=== PATIENT | female | born 1960 | race Caucasian/White ===

== ENCOUNTER 2023-09-13 07:30 | Day surgery (SDC) | payer OTHER ==
[~2023-09-13] VITALS: Ht 154.9 cm; Wt 52.0 kg
[~2023-09-13 07:30] MED LIST: ACYCLOVIR200 MG PO; ALLEGRA180 MG PO; ASPIRIN EC81 MG PO; FLONASE2 SPRAY NS; IBLOOD GLUCOSE TEST STRIP 1 EA TEST VI PRN; LACTATED RINGER'S 1,000 ML IV SCH; LEVOTHYROXINE25 MCG PO; LIDOCAINE HCL 1% 5 ML SDV INJ ONE; MIDAZOLAM HCL 5 MG/5 ML VIAL IV PRN; MULTIVITAMINS1 EAC7 PO; VISION PLUS LU1 EACH PO; ZOCOR10 MG PO; fentaNYL citrate 100 MCG/2 ML VIAL IV PRN
[2023-09-13] MEDS ORDERED: CETIRIZINE HCL10 MG PO (07:48)
[2023-09-13 07:49] VITALS: BP 150/91
[2023-09-13] MEDS ORDERED: MIDAZOLAM HCL 5 MG/5 ML VIAL ONE (08:25)
[2023-09-13] MEDS ORDERED: fentaNYL citrate 100 MCG/2 ML VIAL ONE (08:25)
--- NOTE | 2023-09-13 09:29 | NUR ---
09/13/23 0929 Sindy Cabral 0918- PT PRESENTS TO PACU, LEFT LATERAL SEMI MONTIEL POSITION. LR INFUSING TO RH IV, O2 AT 3L PER NC. BREATHING EVEN AND NON LABORED. PT REACTIVE TO STIMULUS, DENIES PAIN AND NAUSEA. NO SIGNS OF DISTRESS. ABD SOFT, ENCOURAGED TO PASS GAS. PT BACK TO RESTING, ALL MONITORS IN PLACE. 0926- PT MOVED TO ROOM AIR AT THIS TIME. CONTINUES TO REST, NO SIGNS OF DISTRESS. 0928- DR PAYNE AT BEDSIDE TO REVIEW FINDINGS.
[2023-09-13 09:51] VITALS: BP 125/77
--- NOTE | 2023-09-13 11:05 | OR ---
[facility] [address] [place], [place] [address] Signed DATE OF OPERATION: 09/13/2023 SURGEON: Andi Payne MD PREOPERATIVE DIAGNOSIS: History of polyps 2012 in [place]. POSTOPERATIVE DIAGNOSES: 1. Diverticulosis. 2. Very small polyp of low rectum. PROCEDURE: Total colonoscopy to cecum with cold morcellation polypectomy x1. ANESTHESIA: Intravenous sedation; fentanyl 125 mcg and Versed 6 mg. INDICATION: This 63-year-old white woman is a patient of Dr. Quan. She underwent colonoscopy in 2012 in [place] and was found to have at least one polyp she says. She has episodic diarrhea and constipation. She has no family history of colon cancer. She is admitted to undergo colonoscopy. She understands the risk of bleeding, infection, and perforation. FINDINGS: The prep was excellent. Complete colonoscopy was undertaken of the cecum. Passage to the cecum was challenging at the hepatic flexure, but was accomplished safely. She had numerous diverticula throughout the sigmoid and left colon, scattered diverticula elsewhere. There was some mild inflammation of the ileocecal valve, which was biopsied and a very small polyp of low rectum, which was excised. DESCRIPTION OF PROCEDURE: The patient was brought to the endoscopy suite and placed in the lateral decubitus position, given intravenous sedation to the point of slurred speech and nystagmus. Digital rectal examination was normal. An Olympus video colonoscope was passed in the rectum and manipulated into the sigmoid where numerous diverticula were noted. Various manipulations were used to pass beyond this. The scope was then passed to the transverse colon and again some challenging there requiring abdominal wall stabilization, but the scope was ultimately passed to the Electronically Signed By: ANDI PAYNE MD 09/13/23 1105 PATIENT NAME: TAY FANG OPERATIVE REPORT DATE OF : 56 REPORT #: [id number] PHYSICIAN: ANDI PAYNE MD PCP: FRANCISCO QUAN MD REPORT IS CONFIDENTIAL AND NOT TO BE RELEASED WITHOUT AUTHORIZATION [facility] [address] [place], [place] [address] Signed cecum without problem. The ileocecal valve appeared mildly inflamed and redundant and biopsies were obtained. There was no specific polyp, however. The scope was withdrawn and examination throughout confirmed numerous diverticula, but no sign of abnormality into the rectum where a very small polyp was noted. In the retroflexed view, this could be visualized and excised. The scope was withdrawn and removed. The patient was taken to the recovery room in good condition. CONCLUDING DIAGNOSES: 1. Diverticulosis. 2. Small polyp of low rectum. 3. Mildly hypertrophic mucosa of ileocecal valve. PLAN: Recommend repeat colonoscopy in 5 years, sooner if symptoms should develop. Would recommend high-fiber diet as well. MD KIM Miller/MAKENZIE /[id number] cc: Dr. Quan Copies: ~ Electronically Signed By: ANDI PAYNE MD 09/13/23 1105 PATIENT NAME: TAY FANG OPERATIVE REPORT DATE OF : 56 REPORT #: [id number] PHYSICIAN: ANDI PAYNE MD PCP: FRANCISCO QUAN MD REPORT IS CONFIDENTIAL AND NOT TO BE RELEASED WITHOUT AUTHORIZATION
--- NOTE | 2023-09-18 20:17 | PATH ---
[facility] [address] [facility] [place] [address] Signed SPECIMEN(S): A ILEOCECAL VALVE BIOPSY SPECIMEN(S): B RECTAL POLYP SPECIMEN SOURCE: A. ILEOCECAL VALVE BIOPSY B. RECTAL POLYP CLINICAL HISTORY: 2013 Hx polyp, chronic diarrhea. Post: Low rectal polyp and Numerous Diverticula [sic]. FINAL PATHOLOGIC DIAGNOSIS: A. Ileocecal valve, biopsy: - Benign small bowel mucosa with focal epithelial erosion and chronic inflammation (nonspecific). B. Rectal polyp: - Benign colonic mucosa with hyperplastic mucosal features (one fragment). JVR:[facility] MICROSCOPIC EXAMINATION: Histologic sections of all submitted blocks are examined by light microscopy. These findings, together with the gross examination, support the pathologic diagnosis. GROSS DESCRIPTION: A. The specimen, labeled and designated "[place]ore, ileocecal valve biopsy," is received in formalin and consists of two gomez soft tissue fragments, ranging from 0.1-0.2 cm. Entirely submitted in (A1). B. The specimen, labeled and designated "Legore, rectal polyp," is received in formalin and consists of one gomez soft tissue fragment, 0.5 cm. Entirely submitted in (B1). VB (under the direct supervision of a pathologist) The Gross Description was prepared using a voice recognition system. The report was reviewed for accuracy; however, sound-alike word errors, addition and/or deletions may occur. If there is any question about this report, please contact Client Services. PERFORMING LABORATORY: Technical component was performed by [facility], [address] [place] [id number] (CLIA# [id number]). Professional interpretation was performed by [facility] - [place], PATIENT NAME: TAY FANG PATHOLOGY DATE OF : 56 REPORT #: [id number] PHYSICIAN: [facility] PCP: FRANCISCO QUAN MD REPORT IS CONFIDENTIAL AND NOT TO BE RELEASED WITHOUT AUTHORIZATION [facility] [address] [place], [place] [address] [address], [place] [address] (CLIA#: [id number]). Diagnostician: Gen Martinez MD Pathologist Electronically Signed 09/18/2023 Copies: ~ PATIENT NAME: TAY FANG PATHOLOGY DATE OF : 56 REPORT #: [id number] PHYSICIAN: [facility] PCP: FRANCISCO QUAN MD REPORT IS CONFIDENTIAL AND NOT TO BE RELEASED WITHOUT AUTHORIZATION
== END 2023-09-13 10:03 | disposition home or self-care (01) ==
LOC: DS 07:30 → OPS 07:30 → DS 08:20 → OPS 08:30 → DS 08:30 → OPS 10:03 → DS 09-17 14:00
PROVIDERS: ATTEND Surgery
PROC: 0DBE8ZX Excision of Large Intestine, Via Natural or Artificial Opening Endoscopic, Diagnostic (ICD-10-PCS; principal; 2023-09-13 08:20)
DX: K52.9 Noninfective gastroenteritis and colitis, unspecified (principal); K63.3 Ulcer of intestine; K57.30 Diverticulosis of large intestine without perforation or abscess without bleeding; K62.1 Rectal polyp; Z86.010 Personal history of colon polyps; E03.9 Hypothyroidism, unspecified; Z88.5 Allergy status to narcotic agent; Z88.0 Allergy status to penicillin; Z79.899 Other long term (current) drug therapy
CPT/HCPCS: 99153; G0500; J2250; J3010; J7121